=== PATIENT | female | born 1965 | race Hispanic/Latino ===

== ENCOUNTER 2016-11-03 05:53 | Day surgery (SDC) | payer BC, OTHER ==
[2016-10-23 09:43] VITALS: BMI 20.7
[2016-11-03] MEDS ORDERED: Propofol 10 mg/ml Inj (20 ML) ONE (07:16)
[2016-11-03] MEDS ORDERED: ePHEDrine 50 mg/ml Inj ONE (07:17)
[2016-11-03] MEDS ORDERED: Midazolam 2 MG/2 ML VIAL ONE (07:17)
[2016-11-03] MEDS ORDERED: Lidocaine 4% (Laryng-O-Jet) Kit MM ONE (07:17)
[2016-11-03] MEDS ORDERED: Succinylcholine 200 mg/10 ml Inj IV ONE (07:17)
[2016-11-03] MEDS ORDERED: Lactated Ringer's 1,000 ML IV ONE (08:00)
[2016-11-03] MEDS ORDERED: Dexamethasone 4 mg/1 ml ONE (08:29)
[2016-11-03] MEDS ORDERED: Lactated Ringer's 1,000 ML IV SCH (08:50)
[2016-11-03] MEDS: HYDROmorphone 0.5 mg/0.5 ml ISec IVP PRN ×2 (09:06→09:45)
[2016-11-03 09:51] VITALS: RESP 18
--- NOTE | 2016-11-03 09:52 | OP ---
PROCEDURE DATE: PREOPERATIVE DIAGNOSES: Menorrhagia and fibroid uterus. POSTOPERATIVE DIAGNOSES: Menorrhagia and fibroid uterus. PROCEDURES PERFORMED: Intrauterine device removal, hysteroscopy, and NovaSure ablation. SURGEON: Dara Borden MD TYPE OF ANESTHESIA: General. ANESTHESIA ADMINISTERED BY: Kaye De Jesus MD OPERATIVE FINDINGS: Normal external female genitalia. Urethra normal. Cervix smooth no IUD strings Uterus is anteverted. No adnexal masses. Uterus was noted to have irregular contour. HYSTEROSCOPIC FINDINGS: There were no intracavitary fibroids. IUD was visualized Both ostia were visualized. Photomicrograph was taken for documentation. The cavity length measured was 4 cm and cavity width 3.3 cm. The abebe used were 73 for approximately 1 minute 26 seconds. IV FLUID INTAKE: The patient received approximately 600 mL of D5 LR intraoperatively. ESTIMATED BLOOD LOSS: Minimal. URINE OUTPUT: The patient was straight catheterized starting the procedure. DESCRIPTION OF PROCEDURE: After informed consent was obtained, the patient was taken to the operating room where she was given general anesthesia, the patient then prepped and draped in the normal sterile fashion in lithotomy position. A weighted speculum was inserted into the vagina, cervix was then visualized and grasped with a single-toothed tenaculum. The cervix was then gently dilated. The hysteroscope was then inserted into the uterine cavity and cavity was surveyed with the findings noted above. There were no intracavitary lesions or fibroids. The IUD was identified in the uterine cavity and it was extracted with a tissue forceps. A sharp curettage was then performed. The endometrial curettings were sent to pathology. The NovaSure device was then inserted into the uterine cavity with the settings noted above. The device was activated for approximately 1 minute 26 seconds. All instruments were then removed from the uterus. Hemostasis was noted. All sponge, lap, needle, and instrument counts were correct x2. The patient was taken to recovery room in awake and stable condition. Dara Borden MD [facility]
[2016-11-03 10:29] VITALS: O2SAT 98
[2016-11-03 11:09] VITALS: BP 111/59; PULSE 65
[2016-11-03 11:24] VITALS: TEMP 98
== END 2016-11-03 11:52 | disposition home or self-care (01) ==
LOC: H.OPSURG 05:53
PROVIDERS: ATTEND Obstetrics & Gynecology Gynecology
DX: N92.1 Excessive and frequent menstruation with irregular cycle (principal); N88.2 Stricture and stenosis of cervix uteri
CPT/HCPCS: 58579; 88304; 88305; J0330; J1100; J1170; J2001; J2250; J2405; J2704; J3010; J7030; J7120